=== PATIENT | male | born 1980 | race Two or more races ===

== ENCOUNTER 2021-02-03 19:52 | Emergency (ER) | payer OTHER ==
[~2021-02-03] VITALS: Ht 167.6 cm; Wt 82.6 kg
[~2021-02-03 19:52] MED LIST: CONEX TABLET1 EACH PO; DOLOGESIC CAPLE1 TAB PO; KETO10TA2 PO; ORPH100T PO; TUSSIONEX PENNKI5 ML PO
[2021-02-04] MEDS ORDERED: DICLOFENAC SOD100 MG PO (00:53)
[2021-02-04] MEDS ORDERED: PERCOCET 5-3251 EACH PO (00:53)
[2021-02-04] MEDS ORDERED: SKELAXIN800 MG PO (00:53)
== END 2021-02-04 01:05 ==
LOC: ER 19:52
DX: M62.830 Muscle spasm of back (principal)